=== PATIENT | male | born 1975 | race African-American/Black ===

== ENCOUNTER 2024-01-15 06:07 | Emergency (ER) | payer OTHER ==
[~2024-01-15] VITALS: Ht 188 cm; Wt 94.8 kg
[2024-01-15 06:16] VITALS: PULSE 60; RESP 18; TEMP 98.4; O2SAT 98
[2024-01-15] MEDS: TETRACAINE HCL 0.5% OPTH SOLN 4 ML BTL OP ONE (06:41)
[2024-01-15] MEDS: FLUORESCEIN SOD(OPTH) 1 MG STRP OP ONE (06:42)
[2024-01-15] MEDS ORDERED: OFLOXACIN5 ML OP (06:47)
[2024-01-15] MEDS ORDERED: ULTRAM 50MG50 MG PO (06:47)
== END 2024-01-15 06:53 | disposition home or self-care (01) ==
LOC: FSED 06:11
DX: S05.01XA Injury of conjunctiva and corneal abrasion without foreign body, right eye, initial encounter (principal); I10 Essential (primary) hypertension; F17.210 Nicotine dependence, cigarettes, uncomplicated
CPT/HCPCS: 99283